=== PATIENT | female | born 2000 | race Caucasian/White ===

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

== ENCOUNTER → 2018-07-22 | Outpatient (REF) | payer OTHER ==
[2018-07-22 13:08] LABS: IRON (FE) 44 UG/DL (50-170); TOTAL IRON BINDING CAPACITY 338 UG/DL (250-450)
== END ==
LOC: M LAB REF 11:57
DX: D50.9 Iron deficiency anemia, unspecified (principal)
CPT/HCPCS: 83550

== ENCOUNTER → 2018-09-12 | Outpatient (REF) | payer OTHER ==
[2018-09-12 16:20] LABS: BLOOD UREA NITROGEN 10 MG/DL (7-18); CALCIUM LEVEL 8.8 MG/DL (8.5-10.1); CARBON DIOXIDE LEVEL 27 MEQ/L (21-32); CHLORIDE LEVEL 107 MEQ/L (98-107); CREATININE FOR GFR 0.74 MG/DL (0.55-1.30); FREE T4 0.94 NG/DL (0.78-1.33); GLUCOSE, FASTING 104 MG/DL (70-100); POTASSIUM SERUM 3.8 MEQ/L (3.5-5.1); SODIUM LEVEL 140 MEQ/L (136-145)
== END ==
LOC: M LABDRAW1 15:43
PROVIDERS: ATTEND Pediatrics Pediatric Endocrinology
DX: E28.2 Polycystic ovarian syndrome (principal)

== ENCOUNTER → 2018-12-26 | Outpatient (REF) | payer OTHER | LOC: M LAB REF 13:05 | PROVIDERS: ATTEND Physician Assistant | DX: J02.9 Acute pharyngitis, unspecified (principal) ==

== ENCOUNTER → 2018-12-27 | Outpatient (REF) | payer OTHER | LOC: M LAB REF 10:36 | PROVIDERS: ATTEND Physician Assistant | DX: J02.9 Acute pharyngitis, unspecified (principal) ==

== ENCOUNTER → 2020-07-11 | Outpatient (REF) | payer SELFPAY | LOC: M WUC 17:04 | PROVIDERS: ATTEND Physician Assistant | DX: J02.9 Acute pharyngitis, unspecified (principal) ==